=== PATIENT | female | born 1970 ===

== ENCOUNTER 2018-11-29 09:37 | Outpatient (CLI) | payer OTHER ==
[~2018-11-29] VITALS: Ht 165.1 cm; Wt 113.4 kg
== END 2018-11-29 09:55 | disposition home or self-care (01) ==
LOC: OFIC 805 09:37
DX: J30.89 Other allergic rhinitis (principal); R09.81 Nasal congestion; H61.23 Impacted cerumen, bilateral

== ENCOUNTER 2019-01-10 10:48 | Outpatient (CLI) | payer OTHER ==
[~2019-01-10] VITALS: Ht 152.4 cm; Wt 113.4 kg
== END 2019-01-10 11:10 | disposition home or self-care (01) ==
LOC: OFIC 805 10:48
DX: J30.89 Other allergic rhinitis (principal); R09.81 Nasal congestion; L30.9 Dermatitis, unspecified; R22.1 Localized swelling, mass and lump, neck

== ENCOUNTER 2019-02-02 08:37 | Outpatient (CLI) | payer OTHER ==
[~2019-02-02] VITALS: Ht 152.4 cm; Wt 113.4 kg
== END 2019-02-02 09:00 | disposition home or self-care (01) ==
LOC: OFIC 805 08:37
DX: R22.1 Localized swelling, mass and lump, neck (principal); J30.89 Other allergic rhinitis; R68.89 Other general symptoms and signs; E04.1 Nontoxic single thyroid nodule; K21.0 Gastro-esophageal reflux disease with esophagitis

== ENCOUNTER 2019-02-25 10:37 | Outpatient (CLI) | payer OTHER ==
[~2019-02-25] VITALS: Ht 152.4 cm; Wt 113.4 kg
== END 2019-02-25 11:00 | disposition home or self-care (01) ==
LOC: OFIC 805 10:37
DX: K21.0 Gastro-esophageal reflux disease with esophagitis (principal); E04.1 Nontoxic single thyroid nodule; R68.89 Other general symptoms and signs; R09.81 Nasal congestion; R22.1 Localized swelling, mass and lump, neck